=== PATIENT | male | born 1990 | race Caucasian/White ===

== ENCOUNTER 2016-10-16 23:31 | Emergency (ER) | payer MEDICAID, OTHER ==
[~2016-10-16] VITALS: Ht 180.3 cm; Wt 82.6 kg
[2016-10-16 23:48] VITALS: BP 131/80
[2016-10-17] MEDS ORDERED: TETRACAINE HCL 0.5% OPTH(EYE) SOLN 4ML EACHEYE ONE (01:45)
[2016-10-17] MEDS ORDERED: GENTAMICIN OPTH sol 0.3% 5ml EACHEYE ONE (01:45)
[2016-10-17] MEDS ORDERED: FLUORESCEIN SOD 1 MG TEST STRIP EACHEYE ONE (01:45)
[2016-10-17] MEDS ORDERED: OPHTHALMIC IRRIGATION SOLN 30ML EACHEYE ONE (01:45)
== END 2016-10-17 03:01 | disposition home or self-care (01) ==
LOC: ER 23:31
DX: H10.31 Unspecified acute conjunctivitis, right eye (principal); H53.141 Visual discomfort, right eye; W22.8XXA Striking against or struck by other objects, initial encounter; Y93.89 Activity, other specified; Y99.8 Other external cause status; Y92.89 Other specified places as the place of occurrence of the external cause

== ENCOUNTER 2018-02-27 04:30 | Emergency (ER) | payer MEDICAID ==
[~2018-02-27] VITALS: Ht 182.9 cm; Wt 83.9 kg
[2018-02-27 04:38] VITALS: BP 146/88
== END 2018-02-27 06:28 | disposition home or self-care (01) ==
LOC: ER 04:35
DX: K08.89 Other specified disorders of teeth and supporting structures (principal)

== ENCOUNTER 2018-08-15 05:48 | Emergency (ER) | payer MEDICAID ==
[~2018-08-15] VITALS: Ht 182.9 cm; Wt 81.6 kg
[2018-08-15 06:51] VITALS: BP 143/79
== END 2018-08-15 07:39 | disposition home or self-care (01) ==
LOC: ER 05:48
DX: K04.7 Periapical abscess without sinus (principal); F12.10 Cannabis abuse, uncomplicated